=== PATIENT | male | born 1955 | race Caucasian/White ===

== ENCOUNTER → 2019-07-05 | Outpatient (CLI) | payer OTHER ==
[~2019-07-05] MED LIST: ASA81BEC PO; COQ-10100 MG PO; COZAAR 25 MG TA25 M1 PO; FISH OIL 1,0001 EAC9 PO; ISOSORBIDE MONO30 M1 PO; NEURONTIN 300M300 M2 PO; NIACIN 500 MG500 M1 PO; PACERONE200 MG PO; PLAVIX 75 MG TA75 MG PO; RANEXA1000 MG PO
--- NOTE | 2019-07-05 15:57 | 2DMMODE ---
[facility] [address] [place] [address] 2 D/M-MODE ECHOCARDIOGRAM Name: ELIZABETH HURST Room #: REG Chloe#: [id number] Admission: 07/05/19 Attend Phys: Bogdan Solorzano Discharge: Date of : 51 Report #: [id number] THIS REPORT FOR: //name// APPROVED REPORT Study performed: 07/05/2019 13:25:35 EXAM: Comprehensive 2D, Doppler, and color-flow Echocardiogram Patient Location: Out-Patient Room #: Echo lab 2 Status: routine BSA: 2.43 HR: 105 bpm BP: 132/76 mmHg Rhythm: Atrial Fibrillation Other Information Study Quality: Adequate Indications Atrial Fibrillation Dyspnea CAD Hypertension/HDD CABG 2D Dimensions RVDd: 32.64 mm IVSd: 11.31 (7-11mm) LVOT Diam: 22.86 (18-24mm) LVDd: 49.40 mm PWd: 9.46 (7-11mm) Ascending Ao: 37.99 (22-36mm) LVDs: 33.55 (25-40mm) Aortic Root: 36.70 mm IVC: 22.00 mm Volumes Left Atrial Volume (Systole) Single Plane 4CH: 108.36 mL Single Plane 2CH: 67.70 mL LA ESV Index: 38.00 mL/m2 Aortic Valve AoV Peak Flash.: 1.40 m/s AO Peak Gr.: 8.59 mmHg LVOT Max P.28 mmHg LVOT Max V: 1.15 m/s JACE Vmax: 3.36 cm2 [facility] [address] [place] [address] 2 D/M-MODE ECHOCARDIOGRAM Name: ELIZABETH HURST Room #: REG SHANTE Corona#: [id number] Admission: 07/05/19 Attend Phys: Bogdan Solorzano Discharge: Date of : 51 Report #: [id number] Mitral Valve E/A Ratio: 1.6 MV Decel. Time: 193.17 ms MV E Max Flash.: 1.33 m/s MV A Flash.: 0.82 m/s MV PHT: 56.02 ms IVRT: 73.82 ms Pulmonary Valve PV Peak Flash.: 1.04 m/s PV Peak Gr.: 4.29 mmHg Pulmonary Vein P Vein S: 0.75 m/s P Vein A: 0.26 m/s P Vein D: 0.54 m/s P Vein A Dur.: 73.8 msec P Vein S/D Ratio: 1.39 Tricuspid Valve TR Peak Flash.: 3.02 m/s TR Peak Gr.: 36.56 mmHg PA Pressure: 46.00 mmHg Left Ventricle The left ventricle is normal size. There is normal LV segmental wall motion. Borderline concentric left ventricular hypertrophy. The left ventricular systolic function is normal. The left ventricular ejection fraction is within the normal range. LVEF is 60-65%. This study is not technically sufficient to allow evaluation of the LV diastolic function due to atrial fibrillation. Right Ventricle The right ventricle is normal size. The right ventricular systolic function is normal. Atria Left atrium is dilated. Right atrium is dilated. Aortic Valve The aortic valve is normal in structure. Trace aortic regurgitation. There is no aortic valvular stenosis. Mitral Valve The mitral valve is normal in structure. Mild mitral regurgitation. No evidence of mitral valve stenosis. Tricuspid Valve The tricuspid valve is normal in structure. There is trace to mild [facility] [address] [place] [address] 2 D/M-MODE ECHOCARDIOGRAM Name: ELIZABETH HURST Room #: REG CL Fede#: [id number] Admission: 07/05/19 Attend Phys: Bogdan Solorzano Discharge: Date of : 51 Report #: [id number] tricuspid regurgitation. Estimated PAP 46 mmHg. There is moderate pulmonary hypertension. Pulmonic Valve The pulmonary valve is normal in structure. Trace pulmonic regurgitation. Great Vessels The aortic root is normal in size. IVC is dilated and collapses >50% with inspiration. Pericardium There is no pericardial effusion. <Conclusion> The left ventricle is normal size. LVEF is 60-65%. Left atrium is dilated. Right atrium is dilated. The aortic valve is normal in structure. Trace aortic regurgitation. The mitral valve is normal in structure. Mild mitral regurgitation. The tricuspid valve is normal in structure. There is trace to mild tricuspid regurgitation. Estimated PAP 46 mmHg. There is moderate pulmonary hypertension. The pulmonary valve is normal in structure. Trace pulmonic regurgitation. There is no pericardial effusion. <ELECTRONICALLY SIGNED> By: Bogdan Espino MD 07/05/19 1557 1557 1557 Bogdan Espino MD /INF
== END ==
LOC: CV 09:31
DX: I08.1 Rheumatic disorders of both mitral and tricuspid valves (principal); I27.20 Pulmonary hypertension, unspecified; Z88.8 Allergy status to other drugs, medicaments and biological substances; Z88.0 Allergy status to penicillin

== ENCOUNTER → 2019-07-14 | Outpatient (CLI) | payer OTHER ==
[~2019-07-14] VITALS: Ht 12.7 cm; Wt 5.3 kg
[2019-07-14 11:13] VITALS: BP 154/87
--- NOTE | 2019-07-14 16:18 | EKG ---
[place] [address] [facility] [place] [address] ELECTROCARDIOGRAM REPORT Name: ELIZABETH HURST JR Room #: REG CLDwayne Corona#: [id number] Admission: 07/14/19 Attend Phys: Bogdan Espino Discharge: Date of : 51 Report #: [id number] THIS REPORT FOR: //name// [facility] Test Date: 2019-07-14 Test Time: 11:26:23 Pat Name: ELIZABETH HURST Department: Room: Gender: [employer]: Jc JAIME : 1955 Requested By: Bogdan Espino Order Number: [id number] MD: Tarun Ulloa Measurements Intervals [place] Rate: 61 P: 68 MO: 158 QRS: -2 QRSD: 113 T: 108 QT: 460 QTc: 464 Interpretive Statements Sinus rhythm RSR' in V1 or V2, right VCD Nonspecific ST and T wave abnormality No previous ECG available for comparison Electronically Signed On 07-14-2019 16:18:00 [employer] VICE PRESIDENT by Tarun Ulloa [email or web address] <ELECTRONICALLY SIGNED> By: Tarun Ulloa MD, [facility] 07/14/19 1618 25 Tarun Ulloa MD, [facility] /EPI
--- NOTE | 2019-07-31 09:48 | CATHLAB ---
[facility] [address] [place] [address] INVASIVE PROCEDURE REPORT Name: ELIZABETH HURST JR Room #: REG Chloe#: [id number] Admission: 07/14/19 Attend Phys: Bogdan Solorzano Discharge: Date of : 51 Report #: [id number] THIS REPORT FOR: //name// APPROVED REPORT Study performed: 07/14/2019 13:31:15 Patient Details Patient Status: Out-Patient Room #: The patient is a 63 year-old male Event Personnel Bogdan Espino Bat Lathe Operator, Tejal Aquino RN RN, Gonzalo Bejarano RN, Melisa Lopez, Beth Donahue RTR Scrub, Ulises Jasmine RTR Scrub, Valeria Cary bootmaker Performed Art Access - R femoral artery* 31957 Initial Mod Sed Same Phys/QHP Gr5y [id number] 55293 Mod Sed Same Phys/QHP Ea [id number] Left Heart Cath Coronaries, Bypass Grafts [id number] LHCCORCABG Supravalvular Aortography Injection [id number] ISVA Hemostasis with Manual pressure, supervision of conscious sedation Indication Positive stress test, Chest pain Procedure Narrative The patient was brought electively to the Cardiac Catheterization Laboratory and was prepped and draped in a sterile manner. The Right Groin^ was infiltrated with 1% Lidocaine subcutaneous anesthesia. A PINNACLE 4FR Sheath #[id number] sheath was inserted into the RFA^. Coronary angiography was performed using coronary diagnostic catheters. The right coronary system was accessed and visualized with a JR 4 catheter. The left coronary system was accessed and visualized with a JL 5 catheter. The left ventricle was accessed and visualized with a Pigtail catheter. Left ventricular/Aortic Valve gradient assessed via catheter pullback. Hemostasis was obtained with manual pressure following sheath removal without any complications. The patient tolerated the procedure well and there were no complications associated with the procedure. Intraoperative Conscious Sedation Sedation start time: 13:07 Case end Time: 13:50 Versed [address] [address] INVASIVE PROCEDURE REPORT Name: ELIZABETH HURST JR Room #: REG [facility]#: [id number] Admission: 07/14/19 Attend Phys: Bogdan Solorzano Discharge: Date of : 51 Report #: [id number] Fluoro Time: 8.70 minutes Dose: DAP 39752.00 cGycm2 1996 mGy Contrast Type and Amount: Omnipaque 100 ml Coronary Angiography The patient's coronary anatomy is right dominant. [place] Artery Percent Stenosis Left Main: % Prox LAD: % Mid/Distal LAD: % Circumflex: 99 % RCA: 100 % Ramus: % Diagnostic Cath Left Main Normal origin and caliber has a distal 40% lesion. It bifurcates into a subtotal LAD and the left circumflex. LAD Daily at its origin from the left main. The mid and distal fill via ULLOA to the LAD which is free of high-grade disease. Stent noted in the distal ULLOA which is patent. There is moderate luminal irregularities in the mid and distal LAD is a determine is a bifurcating vessel at the apex Diagonal 1 Or caliber vessel supplied by a graft from the ULLOA which is widely patent and the vessel is miniscule in size and free of high-grade disease Circumflex Small-caliber vessel which has a proximal stenosis involving the first marginal branch. There is a high-grade greater than 75% stenosis in the course of the stent giving rise to a small posterior wall terminal circumflex which is initiated by a high-grade ostial lesion. The first marginal branch is completely occluded OM1 SVG to the marginal branch is highly disease with a complex proximal lesion. It then continues on feeding the first marginal branch which courses along the lateral aspect of the heart with luminal irregularities Right Coronary Totally occluded at the ostium. Circulation has some left to right collaterals from the left anterior descending artery Left Ventriculography Left Ventriculography was not performed. Hemodynamics The aortic pressure is 131/76 mmHg with a mean of 101 mmHg. The left ventricular pressure is 131/11 mmHg with a mean of mmHg. The left ventricular end diastolic pressure is 28 mmHg. Conclusion [facility] [address] [place] [address] INVASIVE PROCEDURE REPORT Name: ELIZABETH HURST JR Room #: ROSELIA Corona#: [id number] Admission: 07/14/19 Attend Phys: Bogdan Solorzano Discharge: Date of : 51 Report #: [id number] 1. Coronary artery disease severe status post stenting and aortocoronary bypass grafting with occluded SVG to the RCA and high-grade SVG to the left circumflex 2. Normal hemodynamics with elevated left ventricular end-diastolic pressures Recommendations In view of the patient having a high-grade ostial SVG lesion in the old graft it is felt this to be a higher risk revascularization percutaneously. I discussed with the family optimizing meds until surgical backup is available to proceed with percutaneous revascularization. Redo surgical revascularization not a reasonable option not due to his lack of targets and risk of damaging a patent left internal mammary artery graft to the LAD <ELECTRONICALLY SIGNED> By: Bogdan Espino MD 07/31/19947 7 7 Bogdan Espino MD /INF
== END | disposition home or self-care (01) ==
LOC: CATH 09:44
DX: R07.9 Chest pain, unspecified (principal); I25.810 Atherosclerosis of coronary artery bypass graft(s) without angina pectoris; I11.0 Hypertensive heart disease with heart failure; I50.30 Unspecified diastolic (congestive) heart failure; E78.5 Hyperlipidemia, unspecified; I25.2 Old myocardial infarction; I48.91 Unspecified atrial fibrillation; Z98.890 Other specified postprocedural states; Z86.73 Personal history of transient ischemic attack (TIA), and cerebral infarction without residual deficits; Z95.1 Presence of aortocoronary bypass graft; Z79.01 Long term (current) use of anticoagulants; Z98.52 Vasectomy status; Z79.82 Long term (current) use of aspirin; Z79.899 Other long term (current) drug therapy